=== PATIENT | female | born 1995 | race Caucasian/White ===

== ENCOUNTER 2017-12-02 05:21 | Inpatient (IN) | payer OTHER ==
[2017-12-02] MEDS ORDERED: Water For Irrigation,Sterile 1,000 ML Container IRR PRN (06:08)
[2017-12-02] MEDS ORDERED: Misoprostol 25 MCG (1/4 of 100 MCG) Tab VAG PRN (06:08)
[2017-12-02] MEDS ORDERED: Misoprostol 200 MCG Tab PO PRN (06:08)
[2017-12-02] MEDS ORDERED: Butorphanol 1 MG/ML SDV IVPUSH PRN (06:08)
[2017-12-02] MEDS ORDERED: Sodium Chloride 0.9% 10 ML Syringe FLUSH PRN (06:08)
[2017-12-02] MEDS ORDERED: Nalbuphine 10 MG/1 ML Vial IVPUSH PRN (06:08)
[2017-12-02] MEDS ORDERED: Methylergonovine 0.2 MG/1 ML Amp IM PRN (06:08)
[2017-12-02] MEDS ORDERED: Terbutaline 1 MG/ML SDV SUBCUT PRN (06:08)
[2017-12-02] MEDS ORDERED: Carboprost Tromethamine 250 MCG/1 ML Amp IM PRN (06:08)
[2017-12-02] MEDS ORDERED: Lidocaine 1% 50 ML MDV INJECT PRN (06:08)
[2017-12-02] MEDS ORDERED: Sodium Chloride 0.9% 2.5 ML Syringe FLUSH PRN (06:08)
[2017-12-02] MEDS ORDERED: Oxytocin/0.9 % Sodium Chloride 30 UNIT/500 ML BAG IV SCH ×2 (06:15)
[2017-12-02] MEDS ORDERED: Misoprostol 25 MCG (1/4 of 100 MCG) Tab VAG SCH (06:15)
[2017-12-02] MEDS: Lactated Ringers 1,000 ML IV SCH ×2 (12:12→16:04)
[2017-12-02] MEDS ORDERED: Metoclopramide 10 MG/2 ML SDV IVPUSH PRN (19:14)
[2017-12-02] MEDS ORDERED: Ibuprofen 400 MG Tab PO PRN (21:41)
[2017-12-02] MEDS ORDERED: Witch Hazel Medicated Pads 40/Jar TOP PRN (21:41)
[2017-12-02] MEDS ORDERED: Docusate Sodium 100 MG Cap PO PRN (21:41)
[2017-12-02] MEDS ORDERED: Lanolin 100% Cream 7 GM Tube TOP PRN (21:41)
[2017-12-02] MEDS ORDERED: Bisacodyl 10 MG Supp RECTAL PRN (21:41)
[2017-12-02] MEDS ORDERED: Acetaminophen 500 MG Tab PO PRN ×2 (21:41)
[2017-12-02] MEDS ORDERED: oxyCODONE 5 MG Tab PO PRN (21:41)
[2017-12-02] MEDS ORDERED: Benzocaine/Menthol 20%-0.5% Spray 78 GM Cannister TOP PRN (21:41)
[2017-12-03] MEDS: Ibuprofen 800 MG Tab PO PRN ×2 (05:39→20:10)
--- NOTE | 2017-12-03 10:10 | PCM.PNPP ---
- General Info Date of Service: 12/03/17 Admission Dx/Problem (Free Text): 22 yo P2001 s/p PPD1 Functional Status: Reports: Pain Controlled, Tolerating Diet, Ambulating, Urinating - Review of Systems General: Reports: No Symptoms HEENT: Reports: No Symptoms Pulmonary: Reports: No Symptoms Cardiovascular: Reports: No Symptoms Gastrointestinal: Reports: No Symptoms Genitourinary: Reports: No Symptoms Musculoskeletal: Reports: No Symptoms Skin: Reports: No Symptoms Neurological: Reports: No Symptoms Psychiatric: Reports: No Symptoms - General Info Date of Service: 12/03/17 - Patient Data Vital Signs - Most Recent: Last Vital Signs Temp 36.6 C 12/03/17 07:30 Pulse 72 12/03/17 07:30 Resp 16 12/03/17 07:30 BP 118/58 L 12/03/17 07:30 Pulse Ox 98 12/03/17 07:30 Weight - Most Recent: 68.039 kg Lab Results - Last 24 Hours: Laboratory Results - last 24 hr 12/02/17 12/02/17 12/03/17 Range/Units 21:03 21:03 07:02 Hgb 9.2 L (12.0-16.0) g/dL Hct 29.7 L (36.0-46.0) % Cord ABG pH 7.398 H (7.18-7.38) Cord ABG Base Excess -6 (-10--2) Cord VBG pH 7.262 (7.25-7.45) Cord VBG Base Excess -4 (-10--2) Med Orders - Current: Current Medications Acetaminophen (Tylenol Extra Strength) 500 mg PO Q4H PRN PRN Reason: Pain Acetaminophen (Tylenol Extra Strength) 1,000 mg PO Q4H PRN PRN Reason: Pain Last Admin: 12/03/17 07:20 Dose: 1,000 mg Benzocaine/Menthol (Dermoplast Pain Relief 20%-0.5% [place]) 78 gm TOP ASDIRECTED PRN PRN Reason: Perineal Comfort Measure Bisacodyl (Dulcolax) 10 mg RECTAL .ONCE PRN PRN Reason: Constipation Butorphanol Tartrate (Stadol) 1 mg IVPUSH Q1H PRN PRN Reason: Pain Last Admin: 12/02/17 19:43 Dose: 1 mg Carboprost Tromethamine (Hemabate Ds) 250 mcg IM ASDIRECTED PRN PRN Reason: Post Hemorrhage Docusate Sodium (Colace) 100 mg PO BID PRN PRN Reason: Constipation Emollient Ointment (Lansinoh Hpa) 0 gm TOP ASDIRECTED PRN PRN Reason: Sore Nipples Lactated Ringer's (Ringers, Lactated) 1,000 mls @ 150 mls/hr IV ASDIRECTED JUAN Last Admin: 12/02/17 16:04 Dose: 150 mls/hr Oxytocin/Sodium Chloride (Oxytocin 30 Unit/500 Ml-Ns) 30 unit in 500 mls @ 999 mls/hr IV TITRATE JUAN Oxytocin/Sodium Chloride (Oxytocin 30 Unit/500 Ml-Ns) 30 unit in 500 mls @ 2 mls/hr IV TITRATE JUAN; 2 MUNITS/MIN PRN Reason: Protocol Last Titration: 12/02/17 18:36 Dose: 8 munits/min, 8 mls/hr Ibuprofen (Motrin) 400 mg PO Q4H PRN PRN Reason: Pain Ibuprofen (Motrin) 800 mg PO Q6H PRN PRN Reason: Pain Last Admin: 12/03/17 05:39 Dose: 800 mg Lidocaine HCl (Xylocaine 1%) 50 ml INJECT .ONCE PRN PRN Reason: Laceration repair Methylergonovine Maleate (Methergine) 0.2 mg IM ASDIRECTED PRN PRN Reason: Post Hemorrhage Metoclopramide HCl (Reglan) 10 mg IVPUSH Q6H PRN PRN Reason: Nausea/Vomiting Last Admin: 12/02/17 19:32 Dose: 10 mg Misoprostol (Cytotec) 200 mcg PO .ONCE PRN PRN Reason: Post Hemorrhage Misoprostol (Cytotec) 25 mcg VAG .ONCE JUAN Oxycodone HCl (Oxycodone) 5 mg PO Q2H PRN PRN Reason: Pain Sodium Chloride (Saline Flush) 10 ml FLUSH ASDIRECTED PRN PRN Reason: Keep Vein Open Sodium Chloride (Saline Flush) 2.5 ml FLUSH ASDIRECTED PRN PRN Reason: Keep Vein Open Sterile Water (Sterile Water For Irrigation) 1,000 ml IRR ASDIRECTED PRN PRN Reason: delivery Last Admin: 12/02/17 23:44 Dose: 1,000 ml Witch Roro (Tucks) 1 pad TOP ASDIRECTED PRN PRN Reason: comfort care Discontinued Medications Misoprostol (Cytotec) 25 mcg VAG Q4H PRN PRN Reason: Cervical Ripening Nalbuphine HCl (Nubain) 10 mg IVPUSH Q1H PRN PRN Reason: Pain (severe 7-10) Terbutaline Sulfate (Brethine) 0.25 mg SUBCUT ASDIRECTED PRN PRN Reason: Tacysystole - Infant Interaction Disposition, : at Bedside Interaction: Holding Infant Infant Feeding: Bottle Fed Support Person: , Mother - Recovery Exam Fundal Tone: Firm Fundal Level: 1 Fingerbreadths Below Umbilicus Fundal Placement: Midline Lochia Amount: Scant Lochia Color: Rubra/Red Perineum Description: Intact, Minimal Bruising/Swelling Episiotomy/Laceration: None Bladder Status: Voiding - Exam General: Alert, Oriented HEENT: Pupils Equal Neck: Supple Lungs: Clear to Auscultation Cardiovascular: Regular Rate, Regular Rhythm GI/Abdominal Exam: Normal Bowel Sounds Extremities: Normal Inspection Psy/Mental Status: Alert - Problem List & Annotations (1) Vaginal delivery SNOMED Code(s): 028857538 Code(s): O80 - ENCOUNTER FOR FULL-TERM UNCOMPLICATED DELIVERY Status: Acute Current Visit: Yes - Problem List Review Problem List Initiated/Reviewed/Updated: Yes - My Orders Last 24 Hours: My Active Orders 12/02/17 19:14 Metoclopramide [Reglan] 10 mg IVPUSH Q6H PRN 12/02/17 21:41 Acetaminophen [Tylenol Extra Strength] 1,000 mg PO Q4H PRN Acetaminophen [Tylenol Extra Strength] 500 mg PO Q4H PRN Benzocaine/Menthol [Dermoplast Pain Relief 20%-0.5% [place]] 78 gm TOP ASDIRECTED PRN Bisacodyl [Dulcolax] 10 mg RECTAL .ONCE PRN Docusate Sodium [Colace] 100 mg PO BID PRN Ibuprofen [Motrin] 400 mg PO Q4H PRN Ibuprofen [Motrin] 800 mg PO Q6H PRN Lanolin [Lansinoh HPA] See Dose Instructions TOP ASDIRECTED PRN Witch Roro [Tucks] 1 pad TOP ASDIRECTED PRN oxyCODONE 5 mg PO Q2H PRN 12/02/17 21:42 Patient Status [ADT] Routine Vital Signs [RC] PER UNIT ROUTINE Assess Lochia [WOMSER] Per Unit Routine Assess Uterine Involution [WOMSER] Per Unit Routine Peripheral IV Discontinue [OM.PC] Routine 12/03/17 Breakfast Regular Diet [DIET] - Assessment Assessment:: 22 yo P2001 s/p , normal lochia , bottle feeding , stable , PPD1 - Plan Plan:: Pain control as needed Routine care
[2017-12-04 08:59] VITALS: BP 104/58
--- NOTE | 2017-12-04 10:21 | PCM.PNPP ---
- General Info Date of Service: 12/04/17 Admission Dx/Problem (Free Text): 22 yo P2001 s/p PPD2 Functional Status: Reports: Pain Controlled, Tolerating Diet, Ambulating, Urinating - Review of Systems General: Reports: No Symptoms HEENT: Reports: No Symptoms Pulmonary: Reports: No Symptoms Cardiovascular: Reports: No Symptoms Gastrointestinal: Reports: No Symptoms Genitourinary: Reports: No Symptoms Musculoskeletal: Reports: No Symptoms Skin: Reports: No Symptoms Neurological: Reports: No Symptoms Psychiatric: Reports: No Symptoms - General Info Date of Service: 12/04/17 - Patient Data Vital Signs - Most Recent: Last Vital Signs Temp 36.5 C 12/04/17 08:57 Pulse 77 12/04/17 08:57 Resp 16 12/04/17 08:57 BP 104/58 L 12/04/17 08:57 Pulse Ox 98 12/04/17 08:57 Weight - Most Recent: 68.039 kg Med Orders - Current: Current Medications Acetaminophen (Tylenol Extra Strength) 500 mg PO Q4H PRN PRN Reason: Pain Acetaminophen (Tylenol Extra Strength) 1,000 mg PO Q4H PRN PRN Reason: Pain Last Admin: 12/03/17 07:20 Dose: 1,000 mg Benzocaine/Menthol (Dermoplast Pain Relief 20%-0.5% [place]) 78 gm TOP ASDIRECTED PRN PRN Reason: Perineal Comfort Measure Bisacodyl (Dulcolax) 10 mg RECTAL .ONCE PRN PRN Reason: Constipation Butorphanol Tartrate (Stadol) 1 mg IVPUSH Q1H PRN PRN Reason: Pain Last Admin: 12/02/17 19:43 Dose: 1 mg Carboprost Tromethamine (Hemabate Ds) 250 mcg IM ASDIRECTED PRN PRN Reason: Post Hemorrhage Docusate Sodium (Colace) 100 mg PO BID PRN PRN Reason: Constipation Emollient Ointment (Lansinoh Hpa) 0 gm TOP ASDIRECTED PRN PRN Reason: Sore Nipples Lactated Ringer's (Ringers, Lactated) 1,000 mls @ 150 mls/hr IV ASDIRECTED JUAN Last Admin: 12/02/17 16:04 Dose: 150 mls/hr Oxytocin/Sodium Chloride (Oxytocin 30 Unit/500 Ml-Ns) 30 unit in 500 mls @ 999 mls/hr IV TITRATE JUAN Oxytocin/Sodium Chloride (Oxytocin 30 Unit/500 Ml-Ns) 30 unit in 500 mls @ 2 mls/hr IV TITRATE JUAN; 2 MUNITS/MIN PRN Reason: Protocol Last Titration: 12/02/17 18:36 Dose: 8 munits/min, 8 mls/hr Ibuprofen (Motrin) 400 mg PO Q4H PRN PRN Reason: Pain Ibuprofen (Motrin) 800 mg PO Q6H PRN PRN Reason: Pain Last Admin: 12/03/17 20:10 Dose: 800 mg Lidocaine HCl (Xylocaine 1%) 50 ml INJECT .ONCE PRN PRN Reason: Laceration repair Methylergonovine Maleate (Methergine) 0.2 mg IM ASDIRECTED PRN PRN Reason: Post Hemorrhage Metoclopramide HCl (Reglan) 10 mg IVPUSH Q6H PRN PRN Reason: Nausea/Vomiting Last Admin: 12/02/17 19:32 Dose: 10 mg Misoprostol (Cytotec) 200 mcg PO .ONCE PRN PRN Reason: Post Hemorrhage Misoprostol (Cytotec) 25 mcg VAG .ONCE JUAN Oxycodone HCl (Oxycodone) 5 mg PO Q2H PRN PRN Reason: Pain Sodium Chloride (Saline Flush) 10 ml FLUSH ASDIRECTED PRN PRN Reason: Keep Vein Open Sodium Chloride (Saline Flush) 2.5 ml FLUSH ASDIRECTED PRN PRN Reason: Keep Vein Open Sterile Water (Sterile Water For Irrigation) 1,000 ml IRR ASDIRECTED PRN PRN Reason: delivery Last Admin: 12/02/17 23:44 Dose: 1,000 ml Witch Roro (Tucks) 1 pad TOP ASDIRECTED PRN PRN Reason: comfort care Discontinued Medications Misoprostol (Cytotec) 25 mcg VAG Q4H PRN PRN Reason: Cervical Ripening Nalbuphine HCl (Nubain) 10 mg IVPUSH Q1H PRN PRN Reason: Pain (severe 7-10) Terbutaline Sulfate (Brethine) 0.25 mg SUBCUT ASDIRECTED PRN PRN Reason: Tacysystole - Infant Interaction Infant Disposition, : [place] at Bedside Interaction: Holding Infant Infant Feeding: Bottle Fed Infant Support Person: , Mother - Recovery Exam Fundal Tone: Firm Fundal Level: 1 Fingerbreadths Below Umbilicus Fundal Placement: Midline Lochia Amount: Scant Lochia Color: Rubra/Red Perineum Description: Intact, Minimal Bruising/Swelling Episiotomy/Laceration: None Bladder Status: Nonpalpable Urinary Elimination: Voided - Exam General: Alert, Oriented HEENT: Pupils Equal Neck: Supple Lungs: Clear to Auscultation Cardiovascular: Regular Rate, Regular Rhythm Extremities: Normal Inspection Wound/Incisions: Healing Well Neurological: No New Focal Deficit - Problem List & Annotations (1) Vaginal delivery SNOMED Code(s): 311254916 Code(s): O80 - ENCOUNTER FOR FULL-TERM UNCOMPLICATED DELIVERY Status: Acute Current Visit: Yes - Problem List Review Problem List Initiated/Reviewed/Updated: Yes - My Orders Last 24 Hours: My Active Orders 12/04/17 10:19 Ready for Discharge [RC] PER UNIT ROUTINE - Assessment Assessment:: 22 yo P2001 s/p , normal lochia , bottle feeding , stable , PPD2 - Plan Plan:: Pain control as needed Routine care
--- NOTE | 2017-12-05 11:00 | OR ---
DATE OF PROCEDURE: 12/02/2017 SURGEON: BRENDA PATEL PREOPERATIVE DIAGNOSES: A 22-year-old, G2, P-1-0-0-0, at 37 weeks 4 days for induction of labor secondary to poor OB history and polyhydramnios. POSTOPERATIVE DIAGNOSIS: Status post normal spontaneous vaginal delivery. EBL: 100 mL. ANESTHESIA: None. FINDING: A live male delivered at 2101 hours. 9 and 9. Weight is 3380g. Three-vessel cord noted. EBL was 100. Intact perineum. BRIEF HISTORY: She is a 22-year-old, G1, P0, presented at 20 weeks for care. The patient has a poor OB history, had a history of stillbirth, IUFD at 37 weeks. During monitoring antepartum surveillance, the patient was also noted to have polyhydramnios. TORCHES Titers were done, which revealed IgG positive. She had no history of genital ulcer. GBS was negative. The patient requested for early induction at term. Based on previous history, the patient was agreed to have early induction at term. She was informed about the risk of prematurity with early term delivery. The patient accepted the risks and wanted to proceed with the induction of labor. Induction of labor was started with Pitocin. She was 3 cm dilated. Pitocin was started and titrated up. During the labor course, the patient had variable decelerations. Pitocin was held and restarted again. The patient recovered and the patient went from 3 to 5 cm dilated. AROM was performed. Abundant and clear amniotic fluid was noted. The patient then made change to full dilation. The patient was encouraged to push. DESCRIPTION OF THE PROCEDURE: When the patient was fully dilated, she was encouraged to push. With good patient effort, the head was delivered. There was cord noted around the neck. The anterior and posterior shoulder were delilvered, followed by the body of the baby. The was placed on top of the maternal abdomen. Delayed cord clamping was observed. The cord was clamped and cut. The placenta was delivered by controlled contraction. Pitocin was started after the delivery of the anterior shoulder. After delivery of the placenta, the perineum was inspected and found to be intact. All instrument and sponge counts were correct times two. NAPOLEON / FABIEN /[id number] ANTONIO
== END 2017-12-04 10:49 | disposition home or self-care (01) | DRG 775 ==
LOC: MW.OBCHECK 05:21 → MW.OB 05:23 → MW.OBCHECK 06:08 → MW.OB 06:08 → OBSVTOIN 21:42
PROVIDERS: ADMIT Obstetrics & Gynecology; ATTEND Obstetrics & Gynecology
PROC: 10E0XZZ Delivery of Products of Conception, External Approach (ICD-10-PCS; principal; 2017-12-02)
PROC: 3E033VJ Introduction of Other Hormone into Peripheral Vein, Percutaneous Approach (ICD-10-PCS; 2017-12-02)
PROC: 10907ZC Drainage of Amniotic Fluid, Therapeutic from Products of Conception, Via Natural or Artificial Opening (ICD-10-PCS; 2017-12-02)
DX: O40.3XX0 Polyhydramnios, third trimester, not applicable or unspecified (principal); O09.33 Supervision of pregnancy with insufficient antenatal care, third trimester; Z3A.37 37 weeks gestation of pregnancy; Z37.0 Single live birth
CPT/HCPCS: 36415; 59025; 59409; 82803; 85014; 85018; 85027; 86850; 86900; 86901; A9270-GY; J0595; J2590; J2765; J7120

== ENCOUNTER 2020-02-25 08:08 | Day surgery (SDC) | payer MEDICAID ==
[~2020-02-25 08:08] MED LIST: Doxycycline 100 MG Cap PO ONE; Lactated Ringers 1,000 ML IV SCH; Midazolam 1 MG/ML 2 ML SDV ONE; Sodium Chloride 0.9% 10 ML SDV IV PRN; Sodium Chloride 0.9% 10 ML Syringe FLUSH PRN; Sodium Chloride 0.9% 2.5 ML Syringe FLUSH PRN; fentaNYL 100 MCG/2 ML SDV ONE
--- NOTE | 2020-02-25 08:26 | PCM.PREANE ---
Preanesthetic Assessment - Anesthesia/Transfusion/Family Hx Anesthesia History: Prior Anesthesia Without Reaction Family History of Anesthesia Reaction: No Transfusion History: No Prior Transfusion(s) - Review of Systems General: No Symptoms Pulmonary: No Symptoms Cardiovascular: No Symptoms Gastrointestinal: No Symptoms Neurological: No Symptoms Other: Reports: None - Physical Assessment Height: 5 ft 2 in Weight: 69.853 kg ASA Class: 5E Emergency Airway Class: Mallampati = 2 Dentition: Reports: Normal Dentition ROM/Head Extension: Full Lungs: Clear to Auscultation, Normal Respiratory Effort Cardiovascular: Regular Rate, Regular Rhythm - Allergies Allergies/Adverse Reactions: Allergies Allergy/AdvReac Type Severity Reaction Status Date / Time No Known Allergies Allergy Verified 02/22/20 17:08 - Blood Blood Available: No - Anesthesia Plan Pre-Op Medication Ordered: None - Acknowledgements Anesthesia Type Planned: Spinal Pt an Appropriate Candidate for the Planned Anesthesia: Yes Alternatives and Risks of Anesthesia Discussed w Pt/Guardian: Yes Pt/Guardian Understands and Agrees with Anesthesia Plan: Yes PreAnesthesia Questionnaire - Past Health History Medical/Surgical History: Denies Medical/Surgical History [employer] History: Reports: - Past Surgical History Head Surgeries/Procedures: Reports: None HEENT Surgical History: Reports: Adenoidectomy, Tonsillectomy - SUBSTANCE USE Smoking Status *Q: Former Smoker Tobacco Use Within Last Twelve Months: No Recreational Drug Use History: No - HOME MEDS Home Medications: Home Meds . [No Known Home Meds] 09/09/15 [History] - CURRENT (IN HOUSE) MEDS Current Meds: Current Medications Lactated Ringer's (Ringers, Lactated) 1,000 mls @ 500 mls/hr IV BOLUS JUAN Last Admin: 02/25/20 08:06 Dose: 500 mls/hr Lactated Ringer's (Ringers, Lactated) 1,000 mls @ 100 mls/hr IV ASDIRECTED JUAN Sodium Chloride (Saline Flush) 10 ml FLUSH ASDIRECTED PRN PRN Reason: Keep Vein Open Sodium Chloride (Saline Flush) 2.5 ml FLUSH ASDIRECTED PRN PRN Reason: Keep Vein Open Sodium Chloride (Normal Saline) 10 ml IV ASDIRECTED PRN PRN Reason: IV Use Discontinued Medications Doxycycline Hyclate (Vibramycin) 200 mg PO ONETIME ONE Stop: 02/25/20 07:51 Fentanyl (Sublimaze) Confirm Administered Dose 100 mcg .ROUTE .STK-MED ONE Stop: 02/25/20 07:22 Midazolam HCl (Versed 1 Mg/Ml) Confirm Administered Dose 4 mg .ROUTE .STK-MED ONE Stop: 02/25/20 07:22
[2020-02-25] MEDS ORDERED: Ondansetron 4 MG/2 ML SDV ONE (09:20)
[2020-02-25] MEDS ORDERED: ePHEDrine 50 MG/ML SDV ONE (09:20)
[2020-02-25] MEDS ORDERED: Glycopyrrolate 0.2 MG/ML SDV ONE (09:20)
[2020-02-25] MEDS ORDERED: Ketamine 500 mg/10 ML MDV ONE (09:31)
[2020-02-25] MEDS ORDERED: Acetaminophen/oxyCODONE 325-5 MG Tab PO PRN (10:24)
--- NOTE | 2020-02-25 10:31 | PCM.OPNOTE ---
- General Post-Op/Procedure Note Date of Surgery/Procedure: 02/25/20 Operative Procedure(s): Suction Dilatation and Curettage Findings: EUA showed 10 week sized anteverted uterus Moderate amount of Product of conception Pre Op Diagnosis: 24yo @ 11w with Missed Post-Op Diagnosis: same Anesthesia Technique: Spinal Primary Surgeon: Emi Arias Anesthesia Provider: Derian Miller Pathology: Moderate products of conception Fluid Replacement, Intraop: 1,200 EBL in mLs: 5 Complications: None Condition: Good Free Text/Narrative:: Intake & Output 02/24/20 02/25/20 02/25/20 22:59 06:59 14:59 Intake Total 1300 Balance 1300
[2020-02-25] MEDS ORDERED: Doxycycline 100 MG Cap PO ONE (10:43)
--- NOTE | 2020-02-25 12:14 | PCM48HPAN ---
Post Anesthesia Note - EVALUATION WITHIN 48HRS OF ANESTHETIC Vital Signs in Normal Range: Yes Patient Participated in Evaluation: Yes Respiratory Function Stable: Yes Airway Patent: Yes Cardiovascular Function Stable: Yes Hydration Status Stable: Yes Pain Control Satisfactory: Yes Nausea and Vomiting Control Satisfactory: Yes Mental Status Recovered: Yes Vital Signs: Last Vital Signs Temp 97.3 F 02/25/20 10:25 Pulse 75 02/25/20 11:25 Resp 16 02/25/20 11:25 BP 92/55 L 02/25/20 11:25 Pulse Ox 96 02/25/20 11:25
--- NOTE | 2020-02-25 12:14 | PCM.POSTAN ---
POST ANESTHESIA ASSESSMENT - MENTAL STATUS Mental Status: Alert, Oriented - VITAL SIGNS Vital Signs: Last Vital Signs Temp 97.3 F 02/25/20 10:25 Pulse 75 02/25/20 11:25 Resp 16 02/25/20 11:25 BP 92/55 L 02/25/20 11:25 Pulse Ox 96 02/25/20 11:25 - RESPIRATORY Respiratory Status: Respiratory Rate WNL, Airway Patent, O2 Saturation Stable - CARDIOVASCULAR CV Status: Pulse Rate WNL, Blood Pressure Stable - GASTROINTESTINAL GI Status: No Symptoms - POST OP HYDRATION Hydration Status: Adequate & Stable
[2020-02-25] MEDS ORDERED: Ketorolac 30 MG/ML SDV IVPUSH ONE (12:28)
[2020-02-25 17:03] VITALS: BP 102/54; PULSE 66
--- NOTE | 2020-02-25 17:09 | OR ---
SURGEON: BRENDA HERNANDEZUFARHAT DATE OF PROCEDURE: 02/25/2020 PREOPERATIVE DIAGNOSIS: Missed . POSTOPERATIVE DIAGNOSIS: Missed . PROCEDURE: Suction dilatation and curettage. ESTIMATED BLOOD LOSS: Minimal. IV FLUIDS: 1200. ANESTHESIA: Spinal. NOTES AND FINDINGS: EUA showed about a 10-week size anteverted uterus. Moderate amount of product was obtained, which was sent to the lab for pathology and also for chromosome analysis. BRIEF HISTORY: The patient is a 24-year-old G3, P2-0-0-1, who came at 11 weeks for new OB appointment. she had an ultrasound done that showed no heart rate. At this point, she was diagnosed with a missed . She was given the option for conservative management versus suction D and C versus medical management. She opted for a suction D and C and chromosome analysis. DESCRIPTION OF PROCEDURE: The patient was taken to the operating room where spinal anesthesia was performed without difficulty. She was prepared and draped in the dorsal lithotomy position with Wilbert stirrups. The speculum was placed to expose the cervix. The cervix was then dilated to accommodate a 9 mm curved curette. Suction was started and with rotatory motion , Moderate amount of product of conception was retrieved. Again, a size 3 curette was then placed into the uterus and all four piña of the endometrium was then curetted. Then a suction curette was then also advanced into the uterus to obtain the remaining products . The cervix was inspected and was noted to be hemostatic. The patient tolerated the procedure well. All instrument and pad counts were correct x2. The patient was taken to recovery room in stable condition. NAPOLEON CONN /[id number] ANTONIO
== END 2020-02-25 14:30 | disposition home or self-care (01) ==
LOC: MW.SDS 08:08
PROVIDERS: ATTEND Obstetrics & Gynecology
DX: O02.1 Missed abortion (principal); Z87.891 Personal history of nicotine dependence
CPT/HCPCS: 36415; 59820; 85027; 86850; 86900; 86901; 88233; A9270; J1885; J2250; J2405; J3010; J3490; J7120; 01965; 88305